=== PATIENT | female | born 1965 ===

== ENCOUNTER 2024-12-24 05:30 | Day surgery (SDC) | payer OTHER ==
[2024-11-26 11:02] VITALS: BP 131/89
[2024-11-26 11:17] LABS: BASO % 1.6 % (0.1-1.2); EOS # 0.04 (0.04-0.54); EOS % 1.1 % (0.7-7.0); LYMPH # 0.77 (1.18-3.74); LYMPH % 20.9 % (19.3-53.1); MEAN PLATELET VOLUME 10.90 fl (9.4-12.4); MONO # 0.31 (0.24-0.82); MONO % 8.4 % (4.7-12.5); NEUT # 2.49 (1.56-6.13); NEUT % 67.7 % (34.0-71.1); RED CELL DISTRIBUTION WIDTH 12.3 % (11.6-14.4)
[2024-11-26 11:30] LABS: INR 0.97
[2024-11-26 12:41] LABS: ALT/SGPT 29.0 U/L (12-78); AST/SGOT 19.0 U/L (15-37); BILIRUBIN TOTAL 0.42 mg/dL (0.3-1.2); BUN CREA RATIO 19.0 (7.0-25.0); CREATININE SERUM 0.79 mg/dL (0.55-1.02); GFR 73.99; GLOBULINA 3.6 G/DL (2.4-3.5); GLUCOSE FASTING 89.0 mg/dL (65-100); OSMOLALITY SERUM 285.0 MOSM/KG (275-295)
[~2024-12-24] VITALS: Ht 160 cm; Wt 635.5 kg
[~2024-12-24 05:30] MED LIST: TENORMIN100 M1 PO
== END 2024-12-24 11:50 | disposition home or self-care (01) ==
LOC: CIR.AMB 05:30
PROVIDERS: ATTEND Internal Medicine
DX: D37.8 Neoplasm of uncertain behavior of other specified digestive organs (principal); R13.19 Other dysphagia